=== PATIENT | male | born 1980 | race Caucasian/White ===

== ENCOUNTER 2017-10-05 15:51 | Emergency (ER) | payer MEDICAID, OTHER ==
[2017-10-05 15:58] VITALS: RESP 18; O2SAT 98
--- NOTE | 2017-10-05 16:31 | C.PDOC ---
History Of Present Illness 37 male w/o significant PMHx come in for evaluation of nasal congestion, sore throat, dry cough developed for past few days. Pt also reports, " my urine was dark this AM, have some back pain". Otherwise, pt denies fever, chills, headache , dizziness, neck pain, drooling, dysphagia, dyspnea, SOB, palpitation, abd. pain, V/D, UTI sx, denies penile discharge, testicular pain or swelling. Ambulate to ED for evaluation, not in any apparent distress. Time Seen by Provider: 10/05/17 16:05 Chief Complaint (Nursing): Cough, Cold, Congestion History Per: Patient Past Medical History Reviewed: Historical Data, Nursing Documentation, Vital Signs Vital Signs: Last Vital Signs Temp 97.5 F L 10/05/17 15:55 Pulse 98 H 10/05/17 15:55 Resp 18 10/05/17 15:55 BP 125/86 10/05/17 15:55 Pulse Ox 98 10/05/17 16:59 - Medical History PMH: No Chronic Diseases Family History: States: No Known Family Hx - Social History Hx Tobacco Use: Yes Hx Alcohol Use: No Hx Substance Use: No - Immunization History Hx Tetanus Toxoid Vaccination: No Hx Influenza Vaccination: No Hx Pneumococcal Vaccination: No Review Of Systems Except As Marked, All Systems Reviewed And Found Negative. Constitutional: Positive for: Chills. Negative for: Fever ENT: Positive for: Nose Discharge, Nose Congestion, Throat Pain, Throat Swelling. Negative for: Ear Discharge Cardiovascular: Negative for: Chest Pain Respiratory: Negative for: Cough, Shortness of Breath, Wheezing Gastrointestinal: Negative for: Nausea, Vomiting, Abdominal Pain, Diarrhea Genitourinary: Negative for: Dysuria, Frequency, Incontinence Musculoskeletal: Positive for: Back Pain Skin: Negative for: Rash Neurological: Negative for: Weakness, Numbness, Altered Mental Status, Dizziness Physical Exam - Physical Exam Appears: Well, Non-toxic, No Acute Distress Skin: Normal Color, Warm, Dry, No Rash Head: Normacephalic Eye(s): bilateral: PERRL Ear(s): Bilateral: Normal Nose: No Flaring, Discharge (scant, B/L) Oral Mucosa: Moist, No Drooling Tongue: Normal Appearing Lips: Normal Appearing Throat: Erythema (mod B/L, mild edema B/L), No Drooling Neck: Supple Cardiovascular: Rhythm Regular, No JVD Respiratory: No Decreased Breath Sounds, No Accessory Muscle Use, No Stridor, No Wheezing Gastrointestinal/Abdominal: Soft, No Tenderness, No Distention, No Guarding Back: No CVA Tenderness Extremity: Normal ROM, No Deformity, No Swelling Neurological/Psych: Oriented x3, Normal Speech ED Course And Treatment O2 Sat by Pulse Oximetry: 98 Pulse Ox Interpretation: Normal Progress Note: On re-eval, pt is afebrile, hemodynamicaly stable. non-toxic. Tolerate Po well in ED. PulseOx 98% RA. ENT: exam c/w acute pharyngitis. uvula midline, no edmea. neck: Supple, (-) meningeal sign. Lungs: CTA B/L, BS equal B/L. CVS: (+)S1S2, reg. Abd: benign. NeurOlogicaly intact. Influenza ( -). UA results- normal. Pt advised on course of ds. refl. to F/U with PMD in 2-3 days for re-eval. return to ED if any worsening or new changes. Disposition Counseled Patient/Family Regarding: Diagnosis, Need For Followup, Rx Given - Disposition Referrals: [facility] [Outside] Disposition: HOME/ ROUTINE Disposition Time: 16:59 Condition: STABLE Additional Instructions: ENCOURAGE FLUIDS TAKE MEDICATION PRESCRIBED FOLLOW UP WITH PMD IN 2-3 DAYS FOR RE-EVALUATION. RETURN TO ED IF ANY WORSENING OR NEW CHANGES. Prescriptions: Amoxicillin/Clavulanate [Augmentin 875 MG-125 MG] 1 tab PO BID #14 tab Ibuprofen [Motrin Tab] 400 mg PO Q6 #20 tab Instructions: Pharyngitis (ED) Forms: [employer] (Japanese) - Clinical Impression Clinical Impression: Pharyngitis
[2017-10-05 16:44] LABS: RBC URINE 9 /hpf (0-3); URINE BACTERIA RARE (<OCC); URINE BILIRUBIN NEGATIVE (NEGATIVE); URINE BLOOD 1+ (NEGATIVE); URINE COLOR Yellow (YELLOW); URINE GLUCOSE (UA) NORMAL (Normal); URINE KETONE NEGATIVE (NEGATIVE); URINE LEUKOCYTE ESTERASE NEG Leu/uL (Negative); URINE PROTEIN NEGATIVE (NEGATIVE); WBC URINE < 1 /hpf (0-5)
[2017-10-05 17:54] VITALS: BP 124/76; PULSE 74; TEMP 97.6
== END 2017-10-05 18:04 | disposition home or self-care (01) ==
LOC: EDBD 15:51 → MERGE 15:51 → C.ER 15:51
DX: J02.9 Acute pharyngitis, unspecified (principal); Z87.891 Personal history of nicotine dependence

== ENCOUNTER 2018-08-13 18:12 | Emergency (ER) | payer MEDICAID ==
[2018-08-13 18:58] VITALS: BMI 24.3
--- NOTE | 2018-08-13 19:21 | C.PDOC ---
History Of Present Illness 38 year old male presents to the ED for evaluation of cough and congestion for the last 3 days. , son, daughter all have the same symptoms. Admits to taking Robitussin and cough drops with improvement. (+) smoker. Denies fever, chest pain, sob, abdominal pain, vomiting, headache and any other associated symptoms. Time Seen by Provider: 08/13/18 19:02 Chief Complaint (Nursing): Cough, Cold, Congestion History Per: Patient History/Exam Limitations: no limitations Onset/Duration Of Symptoms: Days Past Medical History Reviewed: Historical Data, Nursing Documentation, Vital Signs Vital Signs: Last Vital Signs Temp 98.6 F 08/13/18 19:09 Pulse 86 08/13/18 19:09 Resp 18 08/13/18 19:09 BP 107/70 08/13/18 19:09 Pulse Ox 97 08/13/18 19:09 Family History: States: Unknown Family Hx - Social History Hx Tobacco Use: Yes Hx Alcohol Use: No Hx Substance Use: No - Immunization History Hx Tetanus Toxoid Vaccination: No Hx Influenza Vaccination: No Hx Pneumococcal Vaccination: No Review Of Systems Except As Marked, All Systems Reviewed And Found Negative. Constitutional: Negative for: Fever, Chills ENT: Positive for: Nose Congestion Respiratory: Positive for: Cough Gastrointestinal: Negative for: Nausea, Vomiting Physical Exam - Physical Exam Appears: Well, Non-toxic, No Acute Distress Skin: Normal Color, Warm, Dry Head: Atraumatic, Normacephalic Eye(s): bilateral: Normal Inspection, EOMI Ear(s): Bilateral: Normal Nose: Normal, No Discharge Oral Mucosa: Moist Throat: Normal, No Erythema, No Exudate, No Drooling Neck: Normal ROM, Supple Chest: Symmetrical Cardiovascular: Rhythm Regular Respiratory: Normal Breath Sounds, No Accessory Muscle Use, No Rales, No Rhonchi, No Wheezing Gastrointestinal/Abdominal: Normal Exam, Soft Extremity: Normal ROM (x4) Neurological/Psych: Oriented x3, Normal Speech Gait: Steady ED Course And Treatment O2 Sat by Pulse Oximetry: 97 (RA) Pulse Ox Interpretation: Normal Progress Note: no evidence of distress. Whole family has same symptoms. Appears viral illness. instructed treat symptomatic and f/u with PMD in 1-2 days. Disposition - Disposition Disposition: HOME/ ROUTINE Disposition Time: 19:20 Condition: STABLE Additional Instructions: Follow up with your primary medical doctor or clinic in 2-5 days for further evaluation. Take medications as prescribed. Return to the emergency department at any time if symptoms persist or worsen. Prescriptions: Guaifen/Dextromethorphan/PE [Mucinex Fast-Max Congest-Cough] 1 each PO Q6 #20 tablet Instructions: Upper Respiratory Infection (ED) Forms: [employer] (Burkinan) - Clinical Impression Clinical Impression: Upper respiratory infection - PA / FILM LOADER / Resident Statement MD/DO has reviewed & agrees with the documentation as recorded. - Scribe Statement The provider has reviewed the documentation as recorded by the Scribe (Geni Arnett) All medical record entries made by the Scribe were at my direction and per sonally dictated by me. I have reviewed the chart and agree that the record accurately reflects my personal performance of the history, physical exam, medical decision making, and the department course for this patient. I have also personally directed, reviewed, and agree with the discharge instructions and disposition.
[2018-08-13 19:34] VITALS: BP 119/73; PULSE 81; RESP 17; TEMP 98.1
[2018-08-20 18:43] VITALS: O2SAT 97
== END 2018-08-13 19:55 | disposition home or self-care (01) ==
LOC: C.ER 18:12
DX: J06.9 Acute upper respiratory infection, unspecified (principal)

== ENCOUNTER 2019-04-01 00:08 | Emergency (ER) | payer MEDICAID ==
[2019-04-01 00:20] VITALS: BMI 24.3
== END 2019-04-01 00:31 | disposition left against medical advice (07) ==
LOC: C.ER 00:08
DX: Z02.89 Encounter for other administrative examinations (principal); R07.9 Chest pain, unspecified

== ENCOUNTER 2019-04-04 00:19 | Emergency (ER) | payer MEDICAID ==
[2019-04-04 00:19] VITALS: BMI 24.3
[2019-04-04 00:26] VITALS: RESP 20
[2019-04-04 00:41] VITALS: O2SAT 100
[2019-04-04] MEDS ORDERED: Sodium Chloride 0.9% 1,000 ML IV ONE (01:02)
--- NOTE | 2019-04-04 01:02 | C.PDOC ---
History Of Present Illness Patient presents to the ED with complaints of dizziness while sitting in his car. He states that he has not been compliant with his thyroid medication as well as drinking energy drinks. Denies nausea, vomiting, tinnitus, chest pain, palpitations, or shortness of breath. Time Seen by Provider: 04/04/19 00:50 Chief Complaint (Nursing): Dizziness/Lightheaded History Per: Patient History/Exam Limitations: no limitations Onset/Duration Of Symptoms: Hrs Current Symptoms Are (Timing): Still Present Activity At Onset Of Symptoms: Other (driving) Past Medical History Reviewed: Historical Data, Nursing Documentation, Vital Signs Vital Signs: Last Vital Signs Temp 97.7 F 04/04/19 00:40 Pulse 72 04/04/19 00:40 Resp 20 04/04/19 00:40 BP 132/82 04/04/19 00:40 Pulse Ox 100 04/04/19 00:40 - Medical History PMH: Hyperlipidemia, Hypothyroidism Family History: States: Unknown Family Hx - Social History Hx Tobacco Use: Yes Hx Alcohol Use: No Hx Substance Use: No - Immunization History Hx Tetanus Toxoid Vaccination: No Hx Influenza Vaccination: No Hx Pneumococcal Vaccination: No Review Of Systems Constitutional: Negative for: Fever, Chills Cardiovascular: Negative for: Chest Pain, Palpitations Respiratory: Negative for: Cough, Shortness of Breath Gastrointestinal: Negative for: Nausea, Vomiting, Abdominal Pain, Diarrhea Neurological: Positive for: Dizziness. Negative for: Weakness, Numbness Physical Exam - Physical Exam Appears: Non-toxic Skin: Warm, Dry Head: Normacephalic Eye(s): bilateral: Normal Inspection Neck: Trachea Midline, Supple Chest: Symmetrical Cardiovascular: Rhythm Regular Respiratory: No Rales, No Rhonchi, No Wheezing Gastrointestinal/Abdominal: Soft, No Tenderness Neurological/Psych: Oriented x3, No Other (nystagmus) ED Course And Treatment - Laboratory Results Result Diagrams: 04/04/19 01:31 04/04/19 01:31 ECG: Interpreted By Me, Viewed By Me ECG Rhythm: Nonspecific Changes O2 Sat by Pulse Oximetry: 100 (RA) Pulse Ox Interpretation: Normal - Radiology CXR: Interpreted by Me, Viewed By Me CXR Interpretation: No: Infiltrates, Fracture, Pnemothorax Progress Note: Blood work, urinalysis and EKG ordered. IV fluids administered. Reevaluation Time: 03:03 Reassessment Condition: Improved Medical Decision Making Medical Decision Making: Upon provider reevaluation patient is feeling better, is medically stable, and requires no further treatment in the ED at this time. Patient will be discharged home . Counseling was provided and all questions were answered regarding martin gnosis and need for follow up with dr eagle. There is agreement to discharge plan. Return if symptoms persist or worsen. Disposition Counseled Patient/Family Regarding: Studies Performed, Diagnosis, Need For Followup - Disposition Referrals: Shaik Eagle MD [Primary Care Provider] - Disposition: HOME/ ROUTINE Disposition Time: 01:02 Condition: FAIR Additional Instructions: Please take your thyroid medication Instructions: Vertigo (a Type of Dizziness), Hypothyroidism (Underactive Thyroid) (DC) Forms: [employer] (Monegasque) - Clinical Impression Clinical Impression: Dizziness, Hypothyroid - Scribe Statement The provider has reviewed the documentation as recorded by the Scribe (Nini Tobar) All medical record entries made by the Scribe were at my direction and personally dictated by me. I have reviewed the chart and agree that the record accurately reflects my personal performance of the history, physical exam, medical decision making, and the department course for this patient. I have also personally directed, reviewed, and agree with the discharge instructions and disposition.
[2019-04-04 01:47] LABS: ALB/GLOB RATIO 1.4 (1.0-2.1); ALBUMIN 4.4 g/dL (3.5-5.0); BLOOD UREA NITROGEN 11 mg/dL (9-20); CALCIUM 9.6 mg/dl (8.6-10.4); GFR NON-AFRICAN AMERICAN > 60; LIPASE 91 U/L (23-300)
[2019-04-04 01:50] LABS: BASO # 0.1 K/uL (0.0-0.2); BASO % 1.3 % (0.0-2.0); EOS # 0.4 K/uL (0.0-0.7); EOS % 4.1 % (0.0-4.0); HEMOGLOBIN 13.2 g/dL (12.0-18.0); LYMPH # 4.1 K/uL (1.0-4.3); MEAN CELL VOLUME 85.3 fL (80.0-94.0); MEAN CORPUSCULAR HEMOGLOBIN 30.2 pg (27.0-31.0); MEAN CORPUSCULAR HGB CONC 35.3 g/dL (33.0-37.0); MONO # 0.5 K/uL (0.0-0.8); MONO % 4.9 % (0.0-10.0); NEUT # 5.1 K/uL (1.8-7.0); NEUT % 49.7 % (50.0-75.0); NRBC % 0.6 % (0.0-2.0); RBC 4.36 Mil/uL (4.40-5.90); RED CELL DISTRIBUTION WIDTH 13.7 % (11.5-14.5); WHITE BLOOD COUNT 10.3 K/uL (4.8-10.8)
[2019-04-04 02:02] LABS: URINE BILIRUBIN NEGATIVE (NEGATIVE); URINE BLOOD NEGATIVE (NEGATIVE); URINE CLARITY Clear (Clear); URINE COLOR Yellow (YELLOW); URINE GLUCOSE (UA) NORMAL (Normal); URINE LEUKOCYTE ESTERASE NEG Leu/uL (Negative); URINE PROTEIN NEGATIVE (NEGATIVE)
[2019-04-04 02:12] LABS: ALT/SGPT 50 U/L (21-72); AST/SGOT 47 U/L (17-59)
[2019-04-04 02:19] LABS: BARBITURATES, UR NEGATIVE (NEGATIVE); BENZODIAZEPINES, UR NEGATIVE (NEGATIVE); OPIATES, UR NEGATIVE (NEGATIVE); PHENCYCLIDINE, UR NEGATIVE (NEGATIVE)
[2019-04-04 02:39] VITALS: BP 125/76; PULSE 70; TEMP 98.2
--- NOTE | 2019-04-04 10:22 | RAD ---
Chest x-ray single frontal view HISTORY: Cough. COMPARISON: None. Findings: No focal infiltrate or effusion. Heart size within normal limits. Impression: No focal infiltrate or effusion.
--- NOTE | 2019-04-04 14:05 | CARD ---
APPROVED REPORT Date of service: 04/04/2019 EKG Measurement Heart [id number] <Conclusion> Normal sinus rhythm Normal ECG
== END 2019-04-04 03:15 | disposition home or self-care (01) ==
LOC: SUPCPDRO 00:19 → C.ER 00:19
DX: R42 Dizziness and giddiness (principal); E03.9 Hypothyroidism, unspecified